=== PATIENT | male | born 1940 | race American Indian/Alaskan Native ===

== ENCOUNTER 2017-08-01 12:19 | Outpatient (CLI) | payer MEDICARE ==
--- NOTE | 2017-08-01 13:03 | XRay Report ---
Chest 2 views. History: Cough. Findings: The heart and pulmonary vessels are normal. The lungs are clear. No rib fracture is seen involving the right fifth anterior rib. No pleural fluid is seen. Impression: No acute findings.
== END 2017-08-01 12:20 | disposition home or self-care (01) ==
LOC: SPVIMAG 12:19
DX: R05 Cough (principal)
CPT/HCPCS: 71020